=== PATIENT | male | born 1980 ===

== ENCOUNTER 2021-10-02 14:55 | Outpatient (CLI) | payer OTHER ==
[~2021-10-02 14:55] MED LIST: ADVAIR 100-501 EACH; KEPPRA500 MG; LAMICTAL25 MG; SINGULAIR10 MG
== END 2021-10-02 16:10 | disposition home or self-care (01) ==
LOC: PPH VACUNA 14:55
PROVIDERS: ATTEND Emergency Medicine Pediatric Emergency Medicine
DX: Z23 Encounter for immunization (principal)